=== PATIENT | female | born 1940 | race African-American/Black ===

== ENCOUNTER 2017-11-09 21:25 | Emergency (ER) | payer MEDICARE, OTHER ==
[~2017-11-09] VITALS: Ht 167.6 cm; Wt 72.6 kg
[2017-11-09 22:12] LABS: Basophils # (auto) 0.1 uL; Basophils % (auto) 1.3 % (0.0-2.0); Eosinophils # (auto) 0.3 uL; Eosinophils % (auto) 5.2 % (0.0-7.0); Hematocrit 38.5 % (36.0-46.0); Hemoglobin 12.4 g/dL (12.2-16.2); Lymphocytes # (auto) 2.2 uL; Lymphocytes % (auto) 42.9 % (10.0-50.0); Mean Corpuscular Hemoglobin 27.8 pg (28.0-32.0); Mean Corpuscular Hgb Conc. 32.3 g/dL (32.0-36.0); Monocytes # (auto) 0.4 uL; Monocytes % (auto) 7.4 % (0.0-12.0); Neutrophils # (auto) 2.2 uL; Neutrophils % (auto) 43.2 % (37.0-80.0); Nucleated Red Blood Cells % 0.2 %; Platelet Count (auto) 222 10^3/uL (140-450); Red Blood Cells 4.48 10^6/uL (4.0-5.20); Red Cell Distribution Width 14.6 % (11.8-14.3); White Blood Cell 5.1 10^3/uL (4.4-10.8)
[2017-11-09 22:30] LABS: Alanine Aminotransferase 26 U/L (13-56); Albumin 3.7 g/dL (3.4-5.0); Anion Gap 9 (5-15); Aspartate Aminotransferase 18 U/L (15-37); BUN/Creatinine Ratio 18.9; Blood Urea Nitrogen 25 mg/dL (7-18); Calcium 9.2 mg/dL (8.5-10.1); Carbon Dioxide 25 mmol/L (21-32); Chloride 107 mmol/L (98-107); GFR African American 50 mL/min; GFR Non-African American 41 mL/min; Glucose 95 mg/dL (74-106); Potassium 3.6 mmol/L (3.5-5.1); Sodium 141 mmol/L (136-145)
[2017-11-09 22:35] LABS: Alkaline Phosphatase 65 U/L (45-117); Bilirubin, Total 0.4 mg/dL (0.2-1.0)
[2017-11-09 22:42] LABS: Urine WBC None Seen /hpf (0 - 5)
[2017-11-09 22:52] LABS: Urine Bacteria NONE SEEN /hpf (None Seen); Urine Blood Negative /uL (Negative); Urine Specific Gravity 1.003 (1.001-1.035)
[2017-11-10 00:26] VITALS: BP 137/67
== END 2017-11-10 03:24 | disposition home or self-care (01) ==
LOC: ER 21:25 → EDBD 21:25 → ER 11-10 03:24
DX: I10 Essential (primary) hypertension (principal); E11.9 Type 2 diabetes mellitus without complications; Z45.2 Encounter for adjustment and management of vascular access device; Z90.710 Acquired absence of both cervix and uterus
CPT/HCPCS: 36415; 71045; 80053; 81001; 84484; 85025; 93005; 94761

== ENCOUNTER → 2017-11-09 | Outpatient (CLI) | payer MEDICARE, OTHER ==
[~2017-11-09] MED LIST: LATA0.0020 EACHEYE; LOS50T PO; MET50T PO; SIMV-8 PO; TRIA50TA2 PO
[2017-11-09 08:34] LABS: Basophils # (auto) 0.1 uL; Basophils % (auto) 1.3 % (0.0-2.0); Eosinophils # (auto) 0.2 uL; Eosinophils % (auto) 5.2 % (0.0-7.0); Hematocrit 38.6 % (36.0-46.0); Hemoglobin 12.4 g/dL (12.2-16.2); Lymphocytes # (auto) 1.7 uL; Lymphocytes % (auto) 40.3 % (10.0-50.0); Mean Corpuscular Hemoglobin 27.6 pg (28.0-32.0); Mean Corpuscular Hgb Conc. 32.1 g/dL (32.0-36.0); Mean Corpuscular Volume 86.1 fL (80.0-100.0); Monocytes # (auto) 0.3 uL; Monocytes % (auto) 7.3 % (0.0-12.0); Neutrophils # (auto) 1.9 uL; Neutrophils % (auto) 45.9 % (37.0-80.0); Nucleated Red Blood Cells % 0.1 %; Platelet Count (auto) 234 10^3/uL (140-450); Red Blood Cells 4.49 10^6/uL (4.0-5.20); Red Cell Distribution Width 15.2 % (11.8-14.3); White Blood Cell 4.2 10^3/uL (4.4-10.8)
[2017-11-09 09:21] LABS: Albumin 3.6 g/dL (3.4-5.0); BUN/Creatinine Ratio 18.6; Bilirubin, Total 0.5 mg/dL (0.2-1.0); Calcium 9.5 mg/dL (8.5-10.1); Potassium 3.6 mmol/L (3.5-5.1); Total Protein 7.4 g/dL (6.4-8.2)
== END | disposition home or self-care (01) ==
LOC: LAB 07:33
PROVIDERS: ATTEND Physician Assistant
DX: I70.0 Atherosclerosis of aorta (principal); E78.2 Mixed hyperlipidemia; E11.22 Type 2 diabetes mellitus with diabetic chronic kidney disease; N18.2 Chronic kidney disease, stage 2 (mild)
CPT/HCPCS: 36415; 80053; 80061; 83036; 85025

== ENCOUNTER 2018-03-27 21:28 | Inpatient (IN) | payer MEDICARE, OTHER ==
[~2018-03-27] VITALS: Ht 167.6 cm; Wt 93.8 kg
[2018-03-28] MEDS ORDERED: ACETAMINOPHEN 325 MG TAB PO ONE (03:15)
[2018-03-28] MEDS ORDERED: cloNIDine HCL 0.1 MG TAB PO ONE (03:15)
[2018-03-28 03:44] LABS: Basophils # (auto) 0.1 uL; Basophils % (auto) 1.3 % (0.0-2.0); Eosinophils # (auto) 0.2 uL; Eosinophils % (auto) 4.3 % (0.0-7.0); Hemoglobin 12.5 g/dL (12.2-16.2); Lymphocytes # (auto) 2.3 uL; Lymphocytes % (auto) 44.6 % (10.0-50.0); Mean Corpuscular Hemoglobin 27.6 pg (28.0-32.0); Mean Corpuscular Volume 86.4 fL (80.0-100.0); Monocytes # (auto) 0.4 uL; Monocytes % (auto) 8.6 % (0.0-12.0); Neutrophils # (auto) 2.1 uL; Neutrophils % (auto) 41.2 % (37.0-80.0); Nucleated Red Blood Cells % 0.1 %; Platelet Count (auto) 229 10^3/uL (140-450); Red Blood Cells 4.52 10^6/uL (4.0-5.20); Red Cell Distribution Width 14.5 % (11.8-14.3); White Blood Cell 5.2 10^3/uL (4.4-10.8)
[2018-03-28 04:04] LABS: Alanine Aminotransferase 25 U/L (13-56); Albumin 3.5 g/dL (3.4-5.0); Anion Gap 7 (5-15); Aspartate Aminotransferase 16 U/L (15-37); BUN/Creatinine Ratio 20.9; Blood Urea Nitrogen 23 mg/dL (7-18); Carbon Dioxide 27 mmol/L (21-32); Chloride 108 mmol/L (98-107); GFR African American 62 mL/min; GFR Non-African American 51 mL/min; Glucose 100 mg/dL (74-106); INR 0.93 (0.9-1.15); Magnesium 2.2 mg/dL (1.6-2.6); Potassium 3.7 mmol/L (3.5-5.1); Sodium 142 mmol/L (136-145)
[2018-03-28 04:09] LABS: Alkaline Phosphatase 63 U/L (45-117); Bilirubin, Total 0.4 mg/dL (0.2-1.0); Total Protein 7.6 g/dL (6.4-8.2)
[2018-03-28] MEDS ORDERED: SODIUM CHLORIDE 0.9% 1,000 ML IV SCH (08:49)
[2018-03-28] MEDS ORDERED: MORPHINE SULFATE 4 MG/ML SYR/VIAL IV PRN ×2 (09:00)
[2018-03-28] MEDS ORDERED: NITROGLYCERIN 0.4 MG SL TAB SL PRN (09:00)
[2018-03-28] MEDS ORDERED: ACETAMINOPHEN 500 MG TAB PO PRN (09:00)
[2018-03-28] MEDS ORDERED: DEXTROSE (50%) 50ML SYRG IV PRN (09:00)
[2018-03-28] MEDS ORDERED: HYDROcodone-ACET 5/325MG TAB PO PRN (09:00)
[2018-03-28] MEDS ORDERED: ONDANSETRON HCL 4 MG/2 ML VIAL IV PRN (09:00)
[2018-03-28] MEDS ORDERED: SODIUM CHLORIDE 0.9% 500 ML IV ONE (09:00)
[2018-03-28] MEDS ORDERED: LORazepam 0.5 MG TAB PO PRN (09:00)
[2018-03-28] MEDS ORDERED: TEMAZEPAM 15 MG CAP PO PRN (09:00)
[2018-03-28] MEDS ORDERED: LACTULOSE 20Gm/30ML SOLN PO PRN (09:00)
[2018-03-28] MEDS: ASPirin 81 mg TAB PO SCH (09:54)
[2018-03-28] MEDS: SODIUM CHLORIDE 0.9% 1,000 ML IV SCH (09:54)
[2018-03-28] MEDS: ENOXAPARIN SOD 40 MG/0.4 ML SYRINGE SC SCH (09:54)
[2018-03-28] MEDS: PANTOPRAZOLE 40 MG TAB PO SCH (09:54)
[2018-03-28] MEDS: ACCU-CHEK COMFORT CURVE STRIP VI SCH ×3 (11:28→21:52)
[2018-03-28] MEDS: InsuLIN REG 1unit/0.01ml Soln (100units/ml) SC SCH ×3 (11:29→21:52)
[2018-03-28 17:00] VITALS: BP_SYST 139; BP_SYST 146; BP_DIAS 74; BP_DIAS 75
[2018-03-28 22:00] VITALS: BP 125/65
[2018-03-28] MEDS ORDERED: INFLUENZA QUAD 2018-2019 0.5 ML SYRG IM SCH (22:00)
[2018-03-29] MEDS: SODIUM CHLORIDE 0.9% 1,000 ML IV SCH ×2 (00:01→12:40)
[2018-03-29 05:45] VITALS: BP 133/72
[2018-03-29 05:58] LABS: Cholesterol 166 mg/dL (< 200); HDL Cholesterol 42 mg/dL (40-59); LDL Cholesterol 111 mg/dL (< 100); Triglycerides 103 mg/dL (< 150)
[2018-03-29] MEDS: ACCU-CHEK COMFORT CURVE STRIP VI SCH ×4 (06:34→22:26)
[2018-03-29] MEDS: InsuLIN REG 1unit/0.01ml Soln (100units/ml) SC SCH ×4 (06:34→22:00)
[2018-03-29] MEDS: ASPirin 81 mg TAB PO SCH (08:50)
[2018-03-29] MEDS: PANTOPRAZOLE 40 MG TAB PO SCH (08:50)
[2018-03-29] MEDS: ENOXAPARIN SOD 40 MG/0.4 ML SYRINGE SC SCH (08:50)
[2018-03-29 08:57] VITALS: BP 130/73
[2018-03-29] MEDS: MEPERIDINE HCL (50 MG/ML) 1 ML VIAL IV PRN ×5 (10:25→19:32)
[2018-03-29] MEDS ORDERED: IODIXANOL 320MG/ML 100ML BTL IV ONE (10:53)
[2018-03-29] MEDS ORDERED: LIDOCAINE 2% (LOCAL ANESTH.) PF 5ml SDV ONE ×2 (10:53→12:12)
[2018-03-29] MEDS ORDERED: ceFAZolin 1GM/50ML 50 ML IV ONE (11:30)
[2018-03-29] MEDS ORDERED: SODIUM CHL 0.9% 0 ML ONE (11:44)
[2018-03-29] MEDS ORDERED: fentaNYL CITRATE 100 MCG/2 ML VL ONE (11:44)
[2018-03-29] MEDS ORDERED: MIDAZOLAM HCL 1MG/1ML-2 ML VIAL ONE (11:44)
[2018-03-29] MEDS ORDERED: ANGIOMAX 250 MG VIAL IV ONE (11:44)
[2018-03-29] MEDS ORDERED: VANCOMYCIN HCL 1000 MG VL ONE (12:22)
[2018-03-29] MEDS ORDERED: VANCOMYCIN 1GM/250ML 250 ML IV ONE (12:22)
[2018-03-29] MEDS ORDERED: FUROSEMIDE 20 MG/2 ML VIAL ONE (12:50)
[2018-03-29 13:24] VITALS: BP 144/75
[2018-03-29 17:00] VITALS: BP 159/76
[2018-03-29 21:34] VITALS: BP 130/72
[2018-03-29] MEDS: VANCOMYCIN 1GM/250ML 250 ML IV SCH (22:26)
[2018-03-30 05:17] VITALS: BP 143/86
[2018-03-30] MEDS: SODIUM CHLORIDE 0.9% 1,000 ML IV SCH (06:41)
[2018-03-30] MEDS: InsuLIN REG 1unit/0.01ml Soln (100units/ml) SC SCH ×2 (06:41→11:30)
[2018-03-30] MEDS: ACCU-CHEK COMFORT CURVE STRIP VI SCH ×2 (06:41→11:30)
[2018-03-30 08:00] VITALS: BP 137/77
[2018-03-30 08:33] VITALS: BP 137/77
[2018-03-30] MEDS: ENOXAPARIN SOD 40 MG/0.4 ML SYRINGE SC SCH (10:00)
[2018-03-30] MEDS: ASPirin 81 mg TAB PO SCH (10:00)
[2018-03-30] MEDS: VANCOMYCIN 1GM/250ML 250 ML IV SCH (10:05)
[2018-03-30] MEDS: PANTOPRAZOLE 40 MG TAB PO SCH (10:05)
[2018-03-30 12:20] VITALS: BP 150/80
== END 2018-03-30 17:24 | disposition home health service (06) | DRG 242 ==
LOC: EDUNIT# 21:28 → EDBD 21:28 → ER 21:30 → TELE 21:31 → TELE-EAST 03-28 15:25
PROVIDERS: ADMIT Internal Medicine; ATTEND Family Medicine
PROC: 4A023N7 Measurement of Cardiac Sampling and Pressure, Left Heart, Percutaneous Approach (ICD-10-PCS; principal; 2018-03-29)
PROC: 0JH606Z Insertion of Pacemaker, Dual Chamber into Chest Subcutaneous Tissue and Fascia, Open Approach (ICD-10-PCS; 2018-03-29)
PROC: 02H63JZ Insertion of Pacemaker Lead into Right Atrium, Percutaneous Approach (ICD-10-PCS; 2018-03-29)
PROC: 02HK3JZ Insertion of Pacemaker Lead into Right Ventricle, Percutaneous Approach (ICD-10-PCS; 2018-03-29)
PROC: B2111ZZ Fluoroscopy of Multiple Coronary Arteries using Low Osmolar Contrast (ICD-10-PCS; 2018-03-29)
PROC: B2151ZZ Fluoroscopy of Left Heart using Low Osmolar Contrast (ICD-10-PCS; 2018-03-29)
DX: I49.5 Sick sinus syndrome (principal); I50.33 Acute on chronic diastolic (congestive) heart failure; I95.9 Hypotension, unspecified; F32.9 Major depressive disorder, single episode, unspecified; N28.9 Disorder of kidney and ureter, unspecified; I08.3 Combined rheumatic disorders of mitral, aortic and tricuspid valves; E11.9 Type 2 diabetes mellitus without complications; E78.00 Pure hypercholesterolemia, unspecified; I11.0 Hypertensive heart disease with heart failure; Z79.899 Other long term (current) drug therapy; Z82.0 Family history of epilepsy and other diseases of the nervous system; Z82.49 Family history of ischemic heart disease and other diseases of the circulatory system; Z90.710 Acquired absence of both cervix and uterus; Z79.82 Long term (current) use of aspirin
CPT/HCPCS: 33208; 36415; 70450; 71045; 80053; 80061; 82550; 82962; 83036; 83735; 83880; 84443; 84484; 85025; 85610; 85652; 85730; 86141; 90674; 93005; 93306; 93458; 96360; 96372; 99152; A6257; C1785; J2001; J2250; Q9967

== ENCOUNTER 2018-05-13 02:49 | Emergency (ER) | payer MEDICARE, OTHER ==
[~2018-05-13] VITALS: Ht 167.6 cm; Wt 72.6 kg
[~2018-05-13 02:49] MED LIST changes: +LATA0.0015 EACHEYE; +LOSA-46 PO; +MET25T PO
[2018-05-13 02:55] VITALS: BP 178/82
== END 2018-05-13 05:30 | disposition left against medical advice (07) ==
LOC: ER 02:49 → MERGE 02:49 → EDBD 02:49 → ER 05:30
DX: I10 Essential (primary) hypertension (principal); Z53.21 Procedure and treatment not carried out due to patient leaving prior to being seen by health care provider

== ENCOUNTER → 2018-05-14 | Outpatient (CLI) | payer MEDICARE, OTHER | END | disposition home or self-care (01) | LOC: Rad HDHVI 10:00 → MERGE 10:00 | PROVIDERS: ATTEND Internal Medicine Cardiovascular Disease | DX: I35.1 Nonrheumatic aortic (valve) insufficiency (principal); I10 Essential (primary) hypertension; I49.5 Sick sinus syndrome | CPT/HCPCS: 93306 ==

== ENCOUNTER → 2018-08-24 | Outpatient (CLI) | payer MEDICARE, OTHER ==
[2018-08-24 09:20] LABS: Basophils # (auto) 0 uL; Basophils % (auto) 1.4 % (0.0-2.0); Eosinophils # (auto) 0.1 uL; Eosinophils % (auto) 3.5 % (0.0-7.0); Hematocrit 39.8 % (36.0-46.0); Hemoglobin 12.8 g/dL (12.2-16.2); Lymphocytes # (auto) 1.5 uL; Lymphocytes % (auto) 44.9 % (10.0-50.0); Mean Corpuscular Hemoglobin 27.3 pg (28.0-32.0); Mean Corpuscular Hgb Conc. 32.1 g/dL (32.0-36.0); Mean Corpuscular Volume 84.9 fL (80.0-100.0); Monocytes # (auto) 0.2 uL; Monocytes % (auto) 7.5 % (0.0-12.0); Neutrophils # (auto) 1.4 uL; Neutrophils % (auto) 42.7 % (37.0-80.0); Nucleated Red Blood Cells % 0.3 %; Platelet Count (auto) 242 10^3/uL (140-450); Red Blood Cells 4.69 10^6/uL (4.0-5.20); Red Cell Distribution Width 14.7 % (11.8-14.3); White Blood Cell 3.3 10^3/uL (4.4-10.8)
[2018-08-24 09:30] LABS: Urine Bacteria FEW /hpf (None Seen); Urine Blood Negative /uL (Negative); Urine Specific Gravity 1.009 (1.001-1.035); Urine WBC 2 /hpf (0 - 5)
[2018-08-24 09:50] LABS: Albumin 3.6 g/dL (3.4-5.0); Calcium 9.8 mg/dL (8.5-10.1); Potassium 3.6 mmol/L (3.5-5.1)
[2018-08-24 09:55] LABS: Bilirubin, Total 0.4 mg/dL (0.2-1.0); Total Protein 7.5 g/dL (6.4-8.2)
== END | disposition home or self-care (01) ==
LOC: LAB 08:32
PROVIDERS: ATTEND Physician Assistant
DX: E11.22 Type 2 diabetes mellitus with diabetic chronic kidney disease (principal); I13.0 Hypertensive heart and chronic kidney disease with heart failure and stage 1 through stage 4 chronic kidney disease, or unspecified chronic kidney disease; I50.9 Heart failure, unspecified; N18.3 Chronic kidney disease, stage 3 (moderate); E78.5 Hyperlipidemia, unspecified; Z75.0 Medical services not available in home
CPT/HCPCS: 36415; 80053; 80061; 81001; 83036; 85025

== ENCOUNTER 2018-09-21 09:47 | Emergency (ER) | payer MEDICARE, OTHER ==
[~2018-09-21] VITALS: Ht 167.6 cm; Wt 70.8 kg
[2018-09-21] MEDS ORDERED: cloNIDine HCL 0.1 MG TAB PO ONE ×2 (10:00→11:00)
[2018-09-21 10:17] LABS: Urine WBC None Seen /hpf (0 - 5)
[2018-09-21 10:33] LABS: Basophils # (auto) 0 uL; Eosinophils # (auto) 0.1 uL; Eosinophils % (auto) 3.5 % (0.0-7.0); Hematocrit 40.5 % (36.0-46.0); Hemoglobin 13.2 g/dL (12.2-16.2); Lymphocytes # (auto) 1.5 uL; Lymphocytes % (auto) 35.7 % (10.0-50.0); Mean Corpuscular Hemoglobin 27.9 pg (28.0-32.0); Mean Corpuscular Hgb Conc. 32.7 g/dL (32.0-36.0); Mean Corpuscular Volume 85.3 fL (80.0-100.0); Monocytes # (auto) 0.3 uL; Monocytes % (auto) 8.2 % (0.0-12.0); Neutrophils # (auto) 2.2 uL; Neutrophils % (auto) 51.6 % (37.0-80.0); Platelet Count (auto) 237 10^3/uL (140-450); Red Blood Cells 4.74 10^6/uL (4.0-5.20); Red Cell Distribution Width 15.1 % (11.8-14.3); White Blood Cell 4.2 10^3/uL (4.4-10.8)
[2018-09-21 10:54] LABS: Albumin 3.9 g/dL (3.4-5.0); Anion Gap 4 (5-15); Blood Urea Nitrogen 26 mg/dL (7-18); Calcium 9.7 mg/dL (8.5-10.1); Carbon Dioxide 27 mmol/L (21-32); Chloride 110 mmol/L (98-107); Glucose 90 mg/dL (74-106); Potassium 3.8 mmol/L (3.5-5.1); Sodium 141 mmol/L (136-145)
[2018-09-21 11:01] LABS: Alanine Aminotransferase 26 U/L (13-56); Alkaline Phosphatase 72 U/L (45-117); Aspartate Aminotransferase 14 U/L (15-37); BUN/Creatinine Ratio 24.5; Bilirubin, Total 0.5 mg/dL (0.2-1.0); GFR African American 64 mL/min; GFR Non-African American 53 mL/min; Total Protein 7.8 g/dL (6.4-8.2)
[2018-09-21 11:35] LABS: Urine Bacteria NONE SEEN /hpf (None Seen); Urine Blood Negative /uL (Negative); Urine Specific Gravity 1.004 (1.001-1.035)
[2018-09-21] MEDS ORDERED: HYDROcodone-ACET 10/325MG TAB PO ONE (11:45)
[2018-09-21] MEDS ORDERED: ACETAMINOPHEN 500 MG TAB PO ONE ×2 (11:51→12:00)
[2018-09-21 16:00] VITALS: BP 128/78
== END 2018-09-21 14:41 | disposition home or self-care (01) ==
LOC: ER 09:47
DX: I13.0 Hypertensive heart and chronic kidney disease with heart failure and stage 1 through stage 4 chronic kidney disease, or unspecified chronic kidney disease (principal); E11.22 Type 2 diabetes mellitus with diabetic chronic kidney disease; N18.9 Chronic kidney disease, unspecified; I50.9 Heart failure, unspecified; E78.5 Hyperlipidemia, unspecified; Z90.710 Acquired absence of both cervix and uterus; Z95.0 Presence of cardiac pacemaker; Z79.899 Other long term (current) drug therapy
CPT/HCPCS: 36415; 70450; 80053; 81001; 84484; 85025; 93005

== ENCOUNTER → 2018-09-27 | Outpatient (CLI) | payer MEDICARE, OTHER | END | disposition home or self-care (01) | LOC: Rad HDHVI 09:47 | PROVIDERS: ATTEND Internal Medicine Cardiovascular Disease | DX: I35.1 Nonrheumatic aortic (valve) insufficiency (principal); I11.9 Hypertensive heart disease without heart failure; R00.2 Palpitations | CPT/HCPCS: 93306 ==

== ENCOUNTER 2018-10-23 13:46 | Emergency (ER) | payer MEDICARE, OTHER ==
[~2018-10-23] VITALS: Ht 167.6 cm; Wt 70.8 kg
[2018-10-23 15:15] LABS: Basophils # (auto) 0 uL; Basophils % (auto) 1.4 % (0.0-2.0); Eosinophils # (auto) 0.2 uL; Eosinophils % (auto) 4.4 % (0.0-7.0); Hematocrit 37.9 % (36.0-46.0); Hemoglobin 12.5 g/dL (12.2-16.2); Lymphocytes # (auto) 1.6 uL; Lymphocytes % (auto) 44.7 % (10.0-50.0); Mean Corpuscular Hemoglobin 28.2 pg (28.0-32.0); Mean Corpuscular Hgb Conc. 33.1 g/dL (32.0-36.0); Mean Corpuscular Volume 85.1 fL (80.0-100.0); Monocytes # (auto) 0.3 uL; Monocytes % (auto) 7.5 % (0.0-12.0); Neutrophils # (auto) 1.5 uL; Nucleated Red Blood Cells % 0.3 %; Platelet Count (auto) 220 10^3/uL (140-450); Red Blood Cells 4.46 10^6/uL (4.0-5.20); Red Cell Distribution Width 14.6 % (11.8-14.3); White Blood Cell 3.6 10^3/uL (4.4-10.8)
[2018-10-23 15:31] LABS: Albumin 3.6 g/dL (3.4-5.0); Calcium 9.5 mg/dL (8.5-10.1); Magnesium 2.4 mg/dL (1.6-2.6); Potassium 3.8 mmol/L (3.5-5.1)
[2018-10-23 15:33] LABS: Bilirubin, Total 0.5 mg/dL (0.2-1.0); Total Protein 6.9 g/dL (6.4-8.2)
[2018-10-23 15:35] LABS: BUN/Creatinine Ratio 19.3
[2018-10-23 16:22] VITALS: BP 131/80
== END 2018-10-23 16:24 | disposition home or self-care (01) ==
LOC: ER 13:53
DX: R07.89 Other chest pain (principal); I13.0 Hypertensive heart and chronic kidney disease with heart failure and stage 1 through stage 4 chronic kidney disease, or unspecified chronic kidney disease; E11.22 Type 2 diabetes mellitus with diabetic chronic kidney disease; N18.9 Chronic kidney disease, unspecified; I50.9 Heart failure, unspecified; E78.5 Hyperlipidemia, unspecified; Z95.0 Presence of cardiac pacemaker; Z79.899 Other long term (current) drug therapy
CPT/HCPCS: 36415; 71046; 80053; 83735; 84484; 85025; 93005

== ENCOUNTER → 2019-02-04 | Outpatient (CLI) | payer MEDICARE, OTHER ==
[~2019-02-04] VITALS: Ht 167.6 cm; Wt 69.4 kg
[~2019-02-04] MED LIST changes: -LOSA-46 PO; +LOSA-69 PO
== END | disposition home or self-care (01) ==
LOC: Rad HDHVI 12:43
PROVIDERS: ATTEND Internal Medicine Cardiovascular Disease
DX: I11.0 Hypertensive heart disease with heart failure (principal); I50.33 Acute on chronic diastolic (congestive) heart failure; I49.5 Sick sinus syndrome; E78.00 Pure hypercholesterolemia, unspecified
CPT/HCPCS: 78452; 93017; 96374; A9500

== ENCOUNTER → 2019-02-12 | Outpatient (CLI) | payer MEDICARE, OTHER | END | disposition home or self-care (01) | LOC: Rad HDHVI 09:49 | PROVIDERS: ATTEND Internal Medicine Cardiovascular Disease | DX: I13.0 Hypertensive heart and chronic kidney disease with heart failure and stage 1 through stage 4 chronic kidney disease, or unspecified chronic kidney disease (principal); I50.33 Acute on chronic diastolic (congestive) heart failure; N18.9 Chronic kidney disease, unspecified; R00.2 Palpitations | CPT/HCPCS: 93880 ==

== ENCOUNTER → 2019-09-25 | Outpatient (CLI) | payer MEDICARE, OTHER ==
[~2019-09-25] MED LIST changes: -LATA0.0015 EACHEYE; +LATA0.0019 EACHEYE
[2019-09-25 08:57] LABS: Basophils # (auto) 0 10 ^3/uL (0-0.2); Basophils % (auto) 1.1 % (0.0-2.0); Eosinophils # (auto) 0.2 10 ^3/uL (0-0.8); Eosinophils % (auto) 4.7 % (0.0-7.0); Hematocrit 40.7 % (36.0-46.0); Hemoglobin 13.3 g/dL (12.2-16.2); Lymphocytes # (auto) 1.5 10 ^3/uL (0.4-5.4); Lymphocytes % (auto) 35.4 % (10.0-50.0); Mean Corpuscular Hgb Conc. 32.8 g/dL (32.0-36.0); Mean Corpuscular Volume 85.3 fL (80.0-100.0); Monocytes # (auto) 0.3 10 ^3/uL (0-1.3); Monocytes % (auto) 7.9 % (0.0-12.0); Neutrophils # (auto) 2.1 10 ^3/uL (1.6-8.6); Neutrophils % (auto) 50.9 % (37.0-80.0); Nucleated Red Blood Cells % 0.1 %; Platelet Count (auto) 217 10^3/uL (140-450); Red Blood Cells 4.77 10^6/uL (4.0-5.20); Red Cell Distribution Width 14.7 % (11.8-14.3); White Blood Cell 4.2 10^3/uL (4.4-10.8)
[2019-09-25 09:23] LABS: Albumin 3.7 g/dL (3.4-5.0); Calcium 9.9 mg/dL (8.5-10.1); Potassium 3.4 mmol/L (3.5-5.1)
[2019-09-25 09:28] LABS: BUN/Creatinine Ratio 17.7; Bilirubin, Total 0.5 mg/dL (0.2-1.0); Total Protein 7.7 g/dL (6.4-8.2)
== END | disposition home or self-care (01) ==
LOC: LAB 08:37
PROVIDERS: ATTEND Physician Assistant
DX: I12.9 Hypertensive chronic kidney disease with stage 1 through stage 4 chronic kidney disease, or unspecified chronic kidney disease (principal); R73.9 Hyperglycemia, unspecified; E78.2 Mixed hyperlipidemia; N18.2 Chronic kidney disease, stage 2 (mild); I11.9 Hypertensive heart disease without heart failure
CPT/HCPCS: 36415; 80053; 80061; 85025

== ENCOUNTER → 2020-02-04 | Outpatient (CLI) | payer MEDICARE, OTHER | END | disposition home or self-care (01) | LOC: Rad HDHVI 09:44 | PROVIDERS: ATTEND Internal Medicine Cardiovascular Disease | DX: R07.89 Other chest pain (principal); R42 Dizziness and giddiness; Z95.0 Presence of cardiac pacemaker | CPT/HCPCS: 93306 ==

== ENCOUNTER → 2020-03-03 | Outpatient (CLI) | payer MEDICARE, OTHER ==
[~2020-03-03] VITALS: Ht 167.6 cm; Wt 71.7 kg
[~2020-03-03] MED LIST changes: +ADENOSINE 60 MG in GIVE UN-DILUTED 0 ML IV ONE; +ADENOSINE 90 MG/30 ML INJ IV ONE
== END | disposition home or self-care (01) ==
LOC: Rad HDHVI 02-19 09:05
PROVIDERS: ATTEND Internal Medicine Cardiovascular Disease
DX: E78.00 Pure hypercholesterolemia, unspecified (principal); I10 Essential (primary) hypertension; Z95.0 Presence of cardiac pacemaker
CPT/HCPCS: 78452; 93005; 96374; 96375; A9500; J0153

== ENCOUNTER → 2020-09-16 | Outpatient (CLI) | payer MEDICARE, OTHER ==
[~2020-09-16] MED LIST changes: -ADENOSINE 60 MG in GIVE UN-DILUTED 0 ML IV ONE; -ADENOSINE 90 MG/30 ML INJ IV ONE
[2020-09-16 11:40] LABS: Basophils # (auto) 0 10 ^3/uL (0-0.2); Basophils % (auto) 1.2 % (0.0-2.0); Eosinophils # (auto) 0.2 10 ^3/uL (0-0.8); Eosinophils % (auto) 4.4 % (0.0-7.0); Hematocrit 38.4 % (36.0-46.0); Hemoglobin 12.8 g/dL (12.2-16.2); Lymphocytes # (auto) 1.3 10 ^3/uL (0.4-5.4); Lymphocytes % (auto) 35.4 % (10.0-50.0); Mean Corpuscular Hemoglobin 28.2 pg (28.0-32.0); Mean Corpuscular Hgb Conc. 33.4 g/dL (32.0-36.0); Mean Corpuscular Volume 84.4 fL (80.0-100.0); Monocytes # (auto) 0.4 10 ^3/uL (0-1.3); Monocytes % (auto) 9.4 % (0.0-12.0); Neutrophils # (auto) 1.9 10 ^3/uL (1.6-8.6); Neutrophils % (auto) 49.6 % (37.0-80.0); Nucleated Red Blood Cells % 0.1 %; Platelet Count (auto) 233 10^3/uL (140-450); Red Blood Cells 4.56 10^6/uL (4.0-5.20); Red Cell Distribution Width 14.7 % (11.8-14.3); White Blood Cell 3.8 10^3/uL (4.4-10.8)
[2020-09-16 11:53] LABS: Potassium 3.8 mmol/L (3.5-5.1)
[2020-09-16 11:54] LABS: Urine Blood Negative /uL (Negative); Urine Specific Gravity 1.018 (1.001-1.035)
[2020-09-16 11:55] LABS: Free T4 (Free Thyroxine) 1.09 ng/dL (0.89-1.76)
[2020-09-16 12:14] LABS: Albumin 3.6 g/dL (3.4-5.0); BUN/Creatinine Ratio 19.7; Bilirubin, Total 0.7 mg/dL (0.2-1.0); Calcium 9.5 mg/dL (8.5-10.1); Total Protein 7.3 g/dL (6.4-8.2)
== END | disposition home or self-care (01) ==
LOC: LAB 08:09
PROVIDERS: ATTEND Internal Medicine Cardiovascular Disease
DX: D51.3 Other dietary vitamin B12 deficiency anemia (principal); I10 Essential (primary) hypertension; E11.9 Type 2 diabetes mellitus without complications; E55.9 Vitamin D deficiency, unspecified; D64.9 Anemia, unspecified; R00.2 Palpitations; R53.1 Weakness; R30.0 Dysuria
CPT/HCPCS: 36415; 80053; 80061; 81003; 82306; 82607; 83036; 84439; 84443; 85025; 87086

== ENCOUNTER → 2021-01-28 | Outpatient (CLI) | payer MEDICARE, OTHER | END | disposition home or self-care (01) | LOC: Rad HDHVI 10:48 | PROVIDERS: ATTEND Internal Medicine Cardiovascular Disease | DX: R07.89 Other chest pain (principal); R06.02 Shortness of breath | CPT/HCPCS: 93306 ==

== ENCOUNTER → 2021-08-16 | Outpatient (CLI) | payer MEDICARE, OTHER ==
[2021-08-16 11:54] LABS: Basophils # (auto) 0 10 ^3/uL (0-0.2); Eosinophils # (auto) 0.2 10 ^3/uL (0-0.8); Eosinophils % (auto) 3.8 % (0.0-7.0); Hematocrit 36.4 % (36.0-46.0); Hemoglobin 12.1 g/dL (12.2-16.2); Lymphocytes # (auto) 1.6 10 ^3/uL (0.4-5.4); Lymphocytes % (auto) 40.2 % (10.0-50.0); Mean Corpuscular Hemoglobin 28.3 pg (28.0-32.0); Mean Corpuscular Hgb Conc. 33.2 g/dL (32.0-36.0); Mean Corpuscular Volume 85.4 fL (80.0-100.0); Monocytes # (auto) 0.3 10 ^3/uL (0-1.3); Monocytes % (auto) 8.3 % (0.0-12.0); Neutrophils # (auto) 1.9 10 ^3/uL (1.6-8.6); Neutrophils % (auto) 46.7 % (37.0-80.0); Nucleated Red Blood Cells % 0.2 %; Red Blood Cells 4.26 10^6/uL (4.0-5.20); Red Cell Distribution Width 14.5 % (11.8-14.3)
[2021-08-16 11:59] LABS: Albumin 3.4 g/dL (3.4-5.0); BUN/Creatinine Ratio 18.4; Calcium 9.6 mg/dL (8.5-10.1); Potassium 3.7 mmol/L (3.5-5.1)
[2021-08-16 12:02] LABS: Bilirubin, Total 0.4 mg/dL (0.2-1.0); Total Protein 7.2 g/dL (6.4-8.2)
[2021-08-16 12:14] LABS: Free T4 (Free Thyroxine) 0.93 ng/dL (0.89-1.76)
[2021-08-16 15:51] LABS: Urine Blood Negative /uL (Negative); Urine Specific Gravity 1.025 (1.001-1.035)
== END | disposition home or self-care (01) ==
LOC: LAB 08:16
PROVIDERS: ATTEND Internal Medicine Cardiovascular Disease
DX: E11.9 Type 2 diabetes mellitus without complications (principal); D51.3 Other dietary vitamin B12 deficiency anemia; D64.9 Anemia, unspecified; E55.9 Vitamin D deficiency, unspecified; I10 Essential (primary) hypertension; R00.2 Palpitations; R53.1 Weakness; R30.0 Dysuria
CPT/HCPCS: 36415; 80053; 80061; 81003; 82306; 82607; 83036; 84439; 84443; 85025; 87086

== ENCOUNTER → 2021-10-20 | Outpatient (CLI) | payer MEDICARE, OTHER ==
[2021-10-20 09:11] LABS: Basophils # (auto) 0.1 10 ^3/uL (0-0.2); Basophils % (auto) 1.3 % (0.0-2.0); Eosinophils # (auto) 0.2 10 ^3/uL (0-0.8); Hematocrit 38.2 % (36.0-46.0); Hemoglobin 12.7 g/dL (12.2-16.2); Lymphocytes # (auto) 1.7 10 ^3/uL (0.4-5.4); Mean Corpuscular Hemoglobin 28.3 pg (28.0-32.0); Mean Corpuscular Hgb Conc. 33.3 g/dL (32.0-36.0); Mean Corpuscular Volume 85.1 fL (80.0-100.0); Monocytes # (auto) 0.4 10 ^3/uL (0-1.3); Monocytes % (auto) 8.8 % (0.0-12.0); Neutrophils % (auto) 46.9 % (37.0-80.0); Nucleated Red Blood Cells % 0.1 %; Red Blood Cells 4.49 10^6/uL (4.0-5.20); Red Cell Distribution Width 14.4 % (11.8-14.3); White Blood Cell 4.4 10^3/uL (4.4-10.8)
[2021-10-20 09:42] LABS: Calcium 9.9 mg/dL (8.5-10.1); Potassium 3.6 mmol/L (3.5-5.1)
[2021-10-20 09:48] LABS: Albumin 3.7 g/dL (3.4-5.0); BUN/Creatinine Ratio 19.7; Bilirubin, Total 0.8 mg/dL (0.2-1.0); Total Protein 7.5 g/dL (6.4-8.2)
== END | disposition home or self-care (01) ==
LOC: LAB 08:48
PROVIDERS: ATTEND Nurse Practitioner Family
DX: I10 Essential (primary) hypertension (principal); E11.9 Type 2 diabetes mellitus without complications; E78.5 Hyperlipidemia, unspecified; Z00.00 Encounter for general adult medical examination without abnormal findings
CPT/HCPCS: 36415; 80053; 80061; 82570; 83036; 85025

== ENCOUNTER → 2021-11-08 | Outpatient (CLI) | payer MEDICARE, OTHER ==
[2021-11-08 11:04] LABS: Urine Bacteria NONE SEEN /hpf (None Seen); Urine Blood Negative /uL (Negative); Urine Specific Gravity 1.005 (1.001-1.035); Urine WBC <1 /hpf (0 - 5)
== END | disposition home or self-care (01) ==
LOC: LAB 10:42
PROVIDERS: ATTEND Nurse Practitioner Family
DX: N39.0 Urinary tract infection, site not specified (principal)
CPT/HCPCS: 81001; 87086

== ENCOUNTER → 2021-12-09 | Outpatient (CLI) | payer MEDICARE, OTHER | END | disposition home or self-care (01) | LOC: Rad HDHVI 14:54 | PROVIDERS: ATTEND Internal Medicine Cardiovascular Disease | DX: I35.1 Nonrheumatic aortic (valve) insufficiency (principal); R07.89 Other chest pain; R06.02 Shortness of breath | CPT/HCPCS: 93306 ==

== ENCOUNTER → 2022-01-13 | Outpatient (CLI) | payer MEDICARE, OTHER ==
[~2022-01-13] VITALS: Ht 167.6 cm; Wt 70.3 kg
[~2022-01-13] MED LIST changes: +ADENOSINE 59 MG in GIVE UN-DILUTED 0 ML IV ONE; +ADENOSINE 90 MG/30 ML INJ IV ONE
== END | disposition home or self-care (01) ==
LOC: Rad HDHVI 09:10
PROVIDERS: ATTEND Internal Medicine Cardiovascular Disease
DX: R06.02 Shortness of breath (principal); I10 Essential (primary) hypertension; E78.5 Hyperlipidemia, unspecified; R07.9 Chest pain, unspecified; E11.9 Type 2 diabetes mellitus without complications; Z95.0 Presence of cardiac pacemaker
CPT/HCPCS: 78452; 93005; 96374; 96375; A9500; J0153

== ENCOUNTER 2022-03-04 16:47 | Emergency (ER) | payer MEDICARE, OTHER ==
[~2022-03-04] VITALS: Ht 167.6 cm; Wt 69.5 kg
[~2022-03-04 16:47] MED LIST changes: -ADENOSINE 59 MG in GIVE UN-DILUTED 0 ML IV ONE; -ADENOSINE 90 MG/30 ML INJ IV ONE
[2022-03-04 17:10] VITALS: BP 182/95
== END 2022-03-04 23:29 | disposition home or self-care (01) ==
LOC: ER 16:51
DX: R05.9 Cough, unspecified (principal); I13.0 Hypertensive heart and chronic kidney disease with heart failure and stage 1 through stage 4 chronic kidney disease, or unspecified chronic kidney disease; E11.22 Type 2 diabetes mellitus with diabetic chronic kidney disease; N18.9 Chronic kidney disease, unspecified; I50.9 Heart failure, unspecified; E78.5 Hyperlipidemia, unspecified; Z90.710 Acquired absence of both cervix and uterus; Z95.0 Presence of cardiac pacemaker; Z79.899 Other long term (current) drug therapy
CPT/HCPCS: 71046

== ENCOUNTER → 2022-10-24 | Outpatient (CLI) | payer MEDICARE, OTHER ==
[2022-10-24 10:46] LABS: Basophils # (auto) 0 10 ^3/uL (0-0.2); Eosinophils # (auto) 0.2 10 ^3/uL (0-0.8); Eosinophils % (auto) 4.4 % (0.0-7.0); Hematocrit 39.7 % (36.0-46.0); Hemoglobin 12.8 g/dL (12.2-16.2); Lymphocytes # (auto) 1.8 10 ^3/uL (0.4-5.4); Lymphocytes % (auto) 43.5 % (10.0-50.0); Mean Corpuscular Hemoglobin 27.5 pg (28.0-32.0); Mean Corpuscular Hgb Conc. 32.3 g/dL (32.0-36.0); Monocytes # (auto) 0.4 10 ^3/uL (0-1.3); Monocytes % (auto) 9.9 % (0.0-12.0); Neutrophils # (auto) 1.7 10 ^3/uL (1.6-8.6); Neutrophils % (auto) 41.2 % (37.0-80.0); Nucleated Red Blood Cells % 0.4 %; Red Blood Cells 4.67 10^6/uL (4.0-5.20); Red Cell Distribution Width 14.6 % (11.8-14.3); White Blood Cell 4.2 10^3/uL (4.4-10.8)
[2022-10-24 12:53] LABS: Potassium 3.7 mmol/L (3.5-5.1)
[2022-10-24 13:02] LABS: Albumin 3.7 g/dL (3.4-5.0); BUN/Creatinine Ratio 22.6 (10.0-20.0); Bilirubin, Total 0.5 mg/dL (0.2-1.0); Total Protein 7.2 g/dL (6.4-8.2)
[2022-10-24 15:19] LABS: Micro Albumin 8.45 mg/L (0-30.0)
== END | disposition home or self-care (01) ==
LOC: LAB 10:23
PROVIDERS: ATTEND Nurse Practitioner Family
DX: E11.65 Type 2 diabetes mellitus with hyperglycemia (principal)
CPT/HCPCS: 36415; 80053; 80061; 82043; 82570; 83036; 84439; 84443; 85025

== ENCOUNTER → 2022-12-22 | Outpatient (CLI) | payer MEDICARE, OTHER ==
[~2022-12-22] MED LIST changes: -LATA0.0019 EACHEYE; +LATA0.008 EACHEYE; -LOSA-69 PO; +LOSA50TA46 PO; -SIMV-8 PO; +SIMV20TA20 PO; -TRIA50TA2 PO; +TRIA75TA11 PO
== END | disposition home or self-care (01) ==
LOC: Rad HDHVI 10:00
PROVIDERS: ATTEND Internal Medicine Cardiovascular Disease
DX: I51.7 Cardiomegaly (principal); R00.2 Palpitations; R06.02 Shortness of breath
CPT/HCPCS: 93306

== ENCOUNTER 2023-01-27 10:06 | Inpatient (IN) | payer MEDICARE, OTHER ==
[~2023-01-27] VITALS: Ht 167.6 cm; Wt 75.4 kg
[2023-01-27 10:51] LABS: Basophils # (auto) 0.1 10 ^3/uL (0-0.2); Basophils % (auto) 0.6 % (0.0-2.0); Eosinophils # (auto) 0.1 10 ^3/uL (0-0.8); Eosinophils % (auto) 0.6 % (0.0-7.0); Hematocrit 38.8 % (36.0-46.0); Hemoglobin 12.6 g/dL (12.2-16.2); Lymphocytes # (auto) 1.8 10 ^3/uL (0.4-5.4); Lymphocytes % (auto) 16.2 % (10.0-50.0); Mean Corpuscular Hemoglobin 27.6 pg (28.0-32.0); Mean Corpuscular Hgb Conc. 32.6 g/dL (32.0-36.0); Mean Corpuscular Volume 84.8 fL (80.0-100.0); Monocytes # (auto) 1.3 10 ^3/uL (0-1.3); Monocytes % (auto) 11.7 % (0.0-12.0); Neutrophils # (auto) 7.7 10 ^3/uL (1.6-8.6); Neutrophils % (auto) 70.9 % (37.0-80.0); Nucleated Red Blood Cells % 0.1 %; Red Blood Cells 4.58 10^6/uL (4.0-5.20); Red Cell Distribution Width 14.4 % (11.8-14.3); White Blood Cell 10.8 10^3/uL (4.4-10.8)
[2023-01-27 11:00] VITALS: PULSE 79; RESP 20; O2SAT 93
[2023-01-27 11:09] LABS: Calcium 10.2 mg/dL (8.5-10.1); Magnesium 3.1 mg/dL (1.6-2.6); Potassium 3.8 mmol/L (3.5-5.1)
[2023-01-27 11:19] LABS: Bilirubin, Total 0.7 mg/dL (0.2-1.0); Total Protein 8.2 g/dL (6.4-8.2)
[2023-01-27] MEDS ORDERED: NITROGLYCERIN 0.4 MG SL TAB SL PRN (13:15)
[2023-01-27] MEDS ORDERED: MORPHINE SULFATE INJ 2 MG/ml SYRG IV PRN (13:15)
[2023-01-27] MEDS: SODIUM CHLORIDE 0.9% 1,000 ML IV SCH ×2 (14:06→23:51)
[2023-01-27 19:30] VITALS: PULSE 84; RESP 22; O2SAT 92
[2023-01-27 19:51] LABS: Urine Bacteria NONE SEEN /hpf (None Seen); Urine Blood Negative /uL (Negative); Urine Clarity Clear (Clear); Urine Color Yellow (Yellow); Urine Hyaline Cast FEW /lpf (0 - 2); Urine Protein, UAD TRACE (Negative); Urine Specific Gravity 1.018 (1.001-1.035); Urine Urobilinogen Normal (Negative); Urine WBC 2 /hpf (0 - 5); Urine pH 5.5 (5.0-8.0)
[2023-01-27] MEDS: ATORVASTATIN 20 MG TAB PO SCH (23:47)
[2023-01-28] VITALS (9 sets, daily range): BP systolic 127–162; BP diastolic 66–92; PULSE 84–93; RESP 16–19; TEMP 98.5–100.8; O2SAT 96–97
[2023-01-28] MEDS: LATANOPROST 0.005 % OPTH(EYE) SOL 2.5ML EACHEYE SCH ×2 (00:07→21:10)
[2023-01-28 06:11] LABS: Basophils # (auto) 0.1 10 ^3/uL (0-0.2); Basophils % (auto) 0.6 % (0.0-2.0); Eosinophils # (auto) 0.1 10 ^3/uL (0-0.8); Eosinophils % (auto) 0.7 % (0.0-7.0); Hematocrit 35.6 % (36.0-46.0); Hemoglobin 11.7 g/dL (12.2-16.2); Lymphocytes # (auto) 1.5 10 ^3/uL (0.4-5.4); Lymphocytes % (auto) 15.2 % (10.0-50.0); Mean Corpuscular Hgb Conc. 32.9 g/dL (32.0-36.0); Mean Corpuscular Volume 85.4 fL (80.0-100.0); Monocytes # (auto) 1.2 10 ^3/uL (0-1.3); Monocytes % (auto) 11.4 % (0.0-12.0); Neutrophils # (auto) 7.3 10 ^3/uL (1.6-8.6); Neutrophils % (auto) 72.1 % (37.0-80.0); Red Blood Cells 4.18 10^6/uL (4.0-5.20); Red Cell Distribution Width 14.2 % (11.8-14.3); White Blood Cell 10.1 10^3/uL (4.4-10.8)
[2023-01-28 06:20] LABS: BUN/Creatinine Ratio 15.3 (10.0-20.0); Calcium 9.4 mg/dL (8.5-10.1); Potassium 3.8 mmol/L (3.5-5.1)
[2023-01-28] MEDS: METOPROLOL SUCCINATE XL 50 MG TAB PO SCH (08:59)
[2023-01-28 09:19] LABS: Cholesterol 261 mg/dL (< 200)
[2023-01-28 09:22] LABS: HDL Cholesterol 45 mg/dL (40-59); LDL Cholesterol 195 mg/dL (< 100); Triglycerides 77 mg/dL (< 150)
[2023-01-28] MEDS: SODIUM CHLORIDE 0.9% 1,000 ML IV SCH ×2 (13:43→19:15)
[2023-01-28] MEDS ORDERED: LOSARTAN POTASSIUM 50 MG TAB PO ONE (17:00)
[2023-01-28] MEDS: ATORVASTATIN 20 MG TAB PO SCH (21:10)
[2023-01-29] VITALS (7 sets, daily range): BP systolic 115–157; BP diastolic 47–81; PULSE 71–87; RESP 16–20; TEMP 98.9–100.3; O2SAT 94–98
[2023-01-29] MEDS: SODIUM CHLORIDE 0.9% 1,000 ML IV SCH ×2 (05:38→15:15)
[2023-01-29] MEDS: HCTZ 25 MG TAB PO SCH (09:04)
[2023-01-29] MEDS: LOSARTAN POTASSIUM 50 MG TAB PO SCH (09:04)
[2023-01-29] MEDS: METOPROLOL SUCCINATE XL 50 MG TAB PO SCH (09:05)
[2023-01-29 12:32] LABS: Erythrocyte Sedimentation Rate 86 mm/hr (0-20)
[2023-01-29 14:18] LABS: COVID19 ANTIGEN SOFIA FIA NEGATIVE (NEGATIVE)
[2023-01-29] MEDS: ACETAMINOPHEN 325 MG TAB PO PRN (17:16)
[2023-01-29] MEDS: ATORVASTATIN 20 MG TAB PO SCH (21:10)
[2023-01-29] MEDS: LATANOPROST 0.005 % OPTH(EYE) SOL 2.5ML EACHEYE SCH (21:14)
[2023-01-30] VITALS (7 sets, daily range): BP systolic 133–154; BP diastolic 67–84; PULSE 65–87; RESP 18–20; TEMP 97.8–99.4; O2SAT 94–97
[2023-01-30] MEDS: SODIUM CHLORIDE 0.9% 1,000 ML IV SCH ×2 (01:15→10:18)
[2023-01-30] MEDS: ACETAMINOPHEN 325 MG TAB PO PRN ×2 (04:24→20:20)
[2023-01-30 08:27] LABS: Folate (Folic Acid) 22.28 ng/mL (5.38-24)
[2023-01-30] MEDS ORDERED: ATORVASTATIN 20 MG TAB PO SCH (09:45)
[2023-01-30] MEDS ORDERED: LORazepam 2MG/ML-1ML VIAL IV PRN (09:45)
[2023-01-30] MEDS: LOSARTAN POTASSIUM 50 MG TAB PO SCH (09:48)
[2023-01-30] MEDS: HCTZ 25 MG TAB PO SCH (09:48)
[2023-01-30] MEDS: METOPROLOL SUCCINATE XL 50 MG TAB PO SCH (09:49)
[2023-01-30] MEDS: ASPirin 81 mg TAB PO SCH (10:18)
[2023-01-30] MEDS ORDERED: ATO40T PO (12:38)
[2023-01-30] MEDS ORDERED: CHOL20007 OR (12:38)
[2023-01-30] MEDS ORDERED: NIF10C PO (12:38)
[2023-01-30] MEDS ORDERED: CLON-499 PO (12:41)
[2023-01-30] MEDS ORDERED: TRIATAB3 PO (12:41)
[2023-01-30] MEDS: ATORVASTATIN 20 MG TAB PO SCH (21:57)
[2023-01-30] MEDS: LATANOPROST 0.005 % OPTH(EYE) SOL 2.5ML EACHEYE SCH (21:59)
[2023-01-31] VITALS (7 sets, daily range): BP systolic 124–145; BP diastolic 69–91; PULSE 68–91; RESP 16–18; TEMP 98.1–98.7; O2SAT 94–98
[2023-01-31 06:27] LABS: Potassium 3.7 mmol/L (3.5-5.1)
[2023-01-31 06:41] LABS: Calcium 9.6 mg/dL (8.5-10.1)
[2023-01-31] MEDS: LOSARTAN POTASSIUM 50 MG TAB PO SCH (09:43)
[2023-01-31] MEDS: METOPROLOL SUCCINATE XL 50 MG TAB PO SCH (09:43)
[2023-01-31] MEDS: ASPirin 81 mg TAB PO SCH (09:43)
[2023-01-31] MEDS: HCTZ 25 MG TAB PO SCH (09:46)
[2023-01-31] MEDS: ACETAMINOPHEN 325 MG TAB PO PRN (18:15)
[2023-01-31] MEDS: ATORVASTATIN 20 MG TAB PO SCH (21:57)
[2023-01-31] MEDS: LATANOPROST 0.005 % OPTH(EYE) SOL 2.5ML EACHEYE SCH (22:00)
[2023-02-01 05:00] VITALS: BP 146/80; PULSE 85; RESP 18; TEMP 98.4; O2SAT 94
[2023-02-01 08:10] VITALS: PULSE 85
[2023-02-01] MEDS: ASPirin 81 mg TAB PO SCH (10:17)
[2023-02-01] MEDS: HCTZ 25 MG TAB PO SCH (10:17)
[2023-02-01] MEDS: LOSARTAN POTASSIUM 50 MG TAB PO SCH (10:18)
[2023-02-01] MEDS: METOPROLOL SUCCINATE XL 50 MG TAB PO SCH (10:19)
[2023-02-01 10:21] VITALS: BP 150/83; PULSE 82; RESP 18; TEMP 98.6; O2SAT 96
== END 2023-02-01 12:10 | disposition home health service (06) | DRG 640 ==
LOC: ER 10:06 → TELE 13:12 → TELE-CENTR 21:54
PROVIDERS: ADMIT Internal Medicine; ATTEND Internal Medicine
DX: E86.0 Dehydration (principal); G93.41 Metabolic encephalopathy; N17.0 Acute kidney failure with tubular necrosis; E44.0 Moderate protein-calorie malnutrition; I13.0 Hypertensive heart and chronic kidney disease with heart failure and stage 1 through stage 4 chronic kidney disease, or unspecified chronic kidney disease; R55 Syncope and collapse; Z20.822 Contact with and (suspected) exposure to COVID-19; E83.52 Hypercalcemia; E78.5 Hyperlipidemia, unspecified; N18.30 Chronic kidney disease, stage 3 unspecified; D64.9 Anemia, unspecified; E11.22 Type 2 diabetes mellitus with diabetic chronic kidney disease; E86.9 Volume depletion, unspecified; F41.9 Anxiety disorder, unspecified; F32.A Depression, unspecified; N64.9 Disorder of breast, unspecified; I50.9 Heart failure, unspecified; Z95.0 Presence of cardiac pacemaker; Z90.710 Acquired absence of both cervix and uterus; Z79.82 Long term (current) use of aspirin; Z79.899 Other long term (current) drug therapy; Z86.73 Personal history of transient ischemic attack (TIA), and cerebral infarction without residual deficits; Z68.28 Body mass index [BMI] 28.0-28.9, adult; Z82.0 Family history of epilepsy and other diseases of the nervous system
CPT/HCPCS: 36415; 70450; 71045; 71250; 80048; 80053; 80061; 81001; 82607; 82746; 83036; 83735; 84443; 84484; 85025; 85652; 87426; 93005; 93886; 95819; G0378

== ENCOUNTER → 2023-02-06 | Outpatient (CLI) | payer MEDICARE, OTHER ==
[~2023-02-06] VITALS: Ht 167.6 cm; Wt 73.9 kg
[~2023-02-06] MED LIST changes: +ADENOSINE 62 MG in GIVE UN-DILUTED 0 ML IV ONE; +ADENOSINE 90 MG/30 ML INJ IV ONE; +ATO40T PO; +CHOL20007 OR; +CLON-499 PO; +NIF10C PO; +TRIATAB3 PO
== END | disposition home or self-care (01) ==
LOC: Rad HDHVI 10:08
PROVIDERS: ATTEND Internal Medicine Cardiovascular Disease
DX: R07.9 Chest pain, unspecified (principal); R06.02 Shortness of breath; R00.2 Palpitations; I49.5 Sick sinus syndrome; E11.40 Type 2 diabetes mellitus with diabetic neuropathy, unspecified; E78.00 Pure hypercholesterolemia, unspecified; Z95.0 Presence of cardiac pacemaker
CPT/HCPCS: 71046; 78452; 93005; 96374; 96375; A9500; J0153

== ENCOUNTER → 2023-11-22 | Outpatient (CLI) | payer MEDICARE, OTHER ==
[~2023-11-22] MED LIST changes: -ADENOSINE 62 MG in GIVE UN-DILUTED 0 ML IV ONE; -ADENOSINE 90 MG/30 ML INJ IV ONE; -ATO40T PO; +ATOR-507 PO; +LOSA-534 PO; -LOSA50TA46 PO
== END | disposition home or self-care (01) ==
LOC: Rad HDHVI 10:47
PROVIDERS: ATTEND Internal Medicine Cardiovascular Disease
DX: I73.9 Peripheral vascular disease, unspecified (principal)
CPT/HCPCS: 93925

== ENCOUNTER 2024-01-08 14:56 | Inpatient (IN) | payer MEDICARE, OTHER ==
[~2024-01-08] VITALS: Ht 162.6 cm; Wt 73.9 kg
[2024-01-08 16:26] LABS: Basophils # (auto) 0.1 10 ^3/uL (0-0.2); Basophils % (auto) 1.2 % (0.0-2.0); Eosinophils # (auto) 0.2 10 ^3/uL (0-0.8); Eosinophils % (auto) 4.3 % (0.0-7.0); Hematocrit 38.3 % (36.0-46.0); Hemoglobin 12.6 g/dL (12.2-16.2); Lymphocytes # (auto) 1.6 10 ^3/uL (0.4-5.4); Lymphocytes % (auto) 35.1 % (10.0-50.0); Mean Corpuscular Hemoglobin 28.2 pg (28.0-32.0); Mean Corpuscular Volume 85.4 fL (80.0-100.0); Monocytes # (auto) 0.4 10 ^3/uL (0-1.3); Monocytes % (auto) 7.9 % (0.0-12.0); Neutrophils # (auto) 2.4 10 ^3/uL (1.6-8.6); Neutrophils % (auto) 51.5 % (37.0-80.0); Nucleated Red Blood Cells % 0.1 %; Red Blood Cells 4.49 10^6/uL (4.0-5.20); Red Cell Distribution Width 15.2 % (11.8-14.3); White Blood Cell 4.6 10^3/uL (4.4-10.8)
[2024-01-08 16:42] LABS: Alanine Aminotransferase 32 U/L (7-40); Albumin 4.3 g/dL (3.2-4.8); Alkaline Phosphatase 84 U/L (46-116); Anion Gap 6 (5-15); Aspartate Aminotransferase 20 U/L (13-40); BUN/Creatinine Ratio 8.4 (10.0-20.0); Bilirubin, Total 0.8 mg/dL (0.2-1.0); Blood Urea Nitrogen 10 mg/dL (9-23); Calcium 9.9 mg/dL (8.7-10.4); Carbon Dioxide 27 mmol/L (20-30); Chloride 109 mmol/L (98-107); Glucose 111 mg/dL (74-106); Lipase 34 U/L (12-53); Potassium 3.2 mmol/L (3.5-5.1); Sodium 142 mmol/L (136-145); Total Protein 6.9 g/dL (5.7-8.2)
[2024-01-08 18:16] VITALS: PULSE 72; O2SAT 97
[2024-01-08] MEDS: POTASSIUM EFFERVESENT TAB 25 MEQ PO ONE (18:18)
[2024-01-08 19:14] LABS: Urine Bacteria None Seen /hpf (None Seen)
[2024-01-08 19:34] LABS: Urine Blood Negative /uL (Negative); Urine Clarity Clear (Clear); Urine Color Colorless (Yellow); Urine Protein, UAD Negative (Negative); Urine Specific Gravity 1.002 (1.001-1.035); Urine Urobilinogen Normal (Negative); Urine WBC <1 /hpf (0 - 5)
[2024-01-08] MEDS ORDERED: ONDANSETRON HCL 4 MG/2 ML VIAL IV PRN (20:45)
[2024-01-08] MEDS ORDERED: DOCUSATE SOD 100 MG CAP PO PRN (20:45)
[2024-01-08] MEDS ORDERED: ACETAMINOPHEN 325 MG TAB PO PRN (20:45)
[2024-01-08] MEDS ORDERED: MORPHINE SULFATE INJ 2 MG/ml SYRG IV PRN ×2 (20:45→21:30)
[2024-01-08] MEDS ORDERED: NITROGLYCERIN 0.4 MG SL TAB SL PRN (21:30)
[2024-01-08] MEDS: SODIUM CHLOR 0.9% PF (SALINE LOCK) 10ML VIAL/SYR IV SCH (22:00)
[2024-01-08] MEDS: ATORVASTATIN 20 MG TAB PO SCH (23:16)
[2024-01-08] MEDS: METOPROLOL TARTRATE 25 MG TAB PO SCH (23:16)
[2024-01-08 23:17] VITALS: PULSE 70; RESP 18; O2SAT 96
[2024-01-09] VITALS (8 sets, daily range): BP systolic 114–143; BP diastolic 72–86; PULSE 56–76; RESP 18–22; TEMP 97.6–98.4; O2SAT 96–99
[2024-01-09] MEDS: HYDROcodone-ACET 5/325MG TAB PO PRN (06:45)
[2024-01-09 06:58] LABS: Basophils # (auto) 0 10 ^3/uL (0-0.2); Eosinophils # (auto) 0.2 10 ^3/uL (0-0.8); Eosinophils % (auto) 4.7 % (0.0-7.0); Hematocrit 37.3 % (36.0-46.0); Hemoglobin 12.5 g/dL (12.2-16.2); Lymphocytes # (auto) 1.6 10 ^3/uL (0.4-5.4); Lymphocytes % (auto) 34.9 % (10.0-50.0); Mean Corpuscular Hemoglobin 28.8 pg (28.0-32.0); Mean Corpuscular Hgb Conc. 33.6 g/dL (32.0-36.0); Mean Corpuscular Volume 85.7 fL (80.0-100.0); Monocytes # (auto) 0.4 10 ^3/uL (0-1.3); Monocytes % (auto) 7.9 % (0.0-12.0); Neutrophils # (auto) 2.4 10 ^3/uL (1.6-8.6); Neutrophils % (auto) 51.5 % (37.0-80.0); Nucleated Red Blood Cells % 0.2 %; Red Blood Cells 4.35 10^6/uL (4.0-5.20); Red Cell Distribution Width 15.1 % (11.8-14.3); White Blood Cell 4.6 10^3/uL (4.4-10.8)
[2024-01-09 07:09] LABS: Alanine Aminotransferase 29 U/L (7-40); Albumin 4.1 g/dL (3.2-4.8); Alkaline Phosphatase 78 U/L (46-116); Anion Gap 6 (5-15); Aspartate Aminotransferase 19 U/L (13-40); BUN/Creatinine Ratio 11.3 (10.0-20.0); Blood Urea Nitrogen 11 mg/dL (9-23); Calcium 10.2 mg/dL (8.7-10.4); Carbon Dioxide 27 mmol/L (20-30); Chloride 112 mmol/L (98-107); Glucose 84 mg/dL (74-106); Potassium 3.7 mmol/L (3.5-5.1); Sodium 145 mmol/L (136-145)
[2024-01-09 07:10] LABS: Bilirubin, Total 0.7 mg/dL (0.2-1.0); Total Protein 6.7 g/dL (5.7-8.2)
[2024-01-09] MEDS: ASPirin 81 mg TAB PO SCH (09:55)
[2024-01-10] VITALS (7 sets, daily range): BP systolic 122–163; BP diastolic 69–93; PULSE 63–73; RESP 17–19; TEMP 98.1–98.9; O2SAT 94–100
[2024-01-10 06:58] LABS: Basophils # (auto) 0 10 ^3/uL (0-0.2); Eosinophils # (auto) 0.2 10 ^3/uL (0-0.8); Hematocrit 37.2 % (36.0-46.0); Hemoglobin 12.6 g/dL (12.2-16.2); Lymphocytes # (auto) 1.5 10 ^3/uL (0.4-5.4); Lymphocytes % (auto) 34.2 % (10.0-50.0); Mean Corpuscular Hemoglobin 28.5 pg (28.0-32.0); Mean Corpuscular Hgb Conc. 33.8 g/dL (32.0-36.0); Mean Corpuscular Volume 84.4 fL (80.0-100.0); Monocytes # (auto) 0.4 10 ^3/uL (0-1.3); Monocytes % (auto) 9.9 % (0.0-12.0); Neutrophils # (auto) 2.2 10 ^3/uL (1.6-8.6); Neutrophils % (auto) 49.9 % (37.0-80.0); Nucleated Red Blood Cells % 0.1 %; Red Blood Cells 4.41 10^6/uL (4.0-5.20); Red Cell Distribution Width 15.2 % (11.8-14.3); White Blood Cell 4.4 10^3/uL (4.4-10.8)
[2024-01-10 07:23] LABS: Anion Gap 7 (5-15); Calcium 9.9 mg/dL (8.7-10.4); Carbon Dioxide 27 mmol/L (20-30); Chloride 109 mmol/L (98-107); Potassium 3.8 mmol/L (3.5-5.1); Sodium 143 mmol/L (136-145)
[2024-01-10 07:28] LABS: Glucose 80 mg/dL (74-106)
[2024-01-10 07:29] LABS: BUN/Creatinine Ratio 14.2 (10.0-20.0); Blood Urea Nitrogen 15 mg/dL (9-23)
[2024-01-10] MEDS ORDERED: MEMA1TAB5 PO (11:27)
[2024-01-10] MEDS ORDERED: CILO100T3 PO (11:27)
[2024-01-10] MEDS ORDERED: NIFE1TAB31 PO (11:27)
[2024-01-10] MEDS ORDERED: BUSP5TAB51 PO (11:27)
[2024-01-10] MEDS: LOSARTAN POTASSIUM 50 MG TAB PO ONE (13:30)
[2024-01-10] MEDS: NIFEdipine ER 30 MG TAB PO ONE (13:30)
[2024-01-10] MEDS: MEMANTINE HCL 5 MG TAB PO SCH (21:49)
[2024-01-11 01:08] VITALS: BP 146/81; PULSE 73; RESP 18; TEMP 98.3; O2SAT 99
[2024-01-11 05:00] VITALS: BP 138/82; PULSE 67; RESP 17; TEMP 98.1; O2SAT 98
[2024-01-11 08:00] VITALS: BP 149/96; PULSE 70; RESP 18; TEMP 98.7; O2SAT 94
[2024-01-11] MEDS: LOSARTAN POTASSIUM 50 MG TAB PO SCH (09:58)
[2024-01-11] MEDS: NIFEdipine ER 30 MG TAB PO SCH (09:59)
[2024-01-11 12:00] VITALS: BP 151/93; PULSE 66; RESP 20; TEMP 98.5; O2SAT 96
[2024-01-11 16:00] VITALS: BP 126/72; PULSE 65; RESP 18; TEMP 98.9; O2SAT 97
== END 2024-01-11 18:00 | disposition home health service (06) | DRG 640 ==
LOC: EDBD 14:56 → ER 14:56 → TELE 21:19 → TELE-WESTW 23:51
PROVIDERS: ADMIT Nurse Practitioner Family; ATTEND Internal Medicine
DX: E87.6 Hypokalemia (principal); G93.41 Metabolic encephalopathy; I13.0 Hypertensive heart and chronic kidney disease with heart failure and stage 1 through stage 4 chronic kidney disease, or unspecified chronic kidney disease; I16.0 Hypertensive urgency; E66.9 Obesity, unspecified; E78.5 Hyperlipidemia, unspecified; E11.22 Type 2 diabetes mellitus with diabetic chronic kidney disease; N18.9 Chronic kidney disease, unspecified; I50.9 Heart failure, unspecified; F41.9 Anxiety disorder, unspecified; F32.A Depression, unspecified; F03.90 Unspecified dementia, unspecified severity, without behavioral disturbance, psychotic disturbance, mood disturbance, and anxiety; Z90.710 Acquired absence of both cervix and uterus; Z95.810 Presence of automatic (implantable) cardiac defibrillator; Z68.30 Body mass index [BMI] 30.0-30.9, adult
CPT/HCPCS: 36415; 70450; 71045; 80048; 80053; 81001; 82607; 83605; 83690; 83880; 84443; 84484; 85025; 93306; 97110; 97116; G0378

== ENCOUNTER → 2024-04-03 | Outpatient (CLI) | payer MEDICARE, OTHER ==
[~2024-04-03] VITALS: Ht 167.6 cm; Wt 68.9 kg
[~2024-04-03] MED LIST changes: +ADENOSINE 58 MG in GIVE UN-DILUTED 0 ML IV ONE; +ADENOSINE 90 MG/30 ML INJ IV ONE; +BUSP5TAB51 PO; +CILO100T3 PO; -LATA0.008 EACHEYE; +MEMA1TAB5 PO; -MET25T PO; -NIF10C PO; +NIFE1TAB31 PO; -TRIA75TA11 PO
== END | disposition home or self-care (01) ==
LOC: Rad HDHVI 13:43
PROVIDERS: ATTEND Internal Medicine Cardiovascular Disease
DX: E78.00 Pure hypercholesterolemia, unspecified (principal); I35.1 Nonrheumatic aortic (valve) insufficiency; I10 Essential (primary) hypertension; E11.9 Type 2 diabetes mellitus without complications; I49.5 Sick sinus syndrome
CPT/HCPCS: 78452; 93005; 96374; A9500; J0153; 96375

== ENCOUNTER → 2024-04-10 | Outpatient (CLI) | payer MEDICARE, OTHER ==
[~2024-04-10] MED LIST changes: -ADENOSINE 58 MG in GIVE UN-DILUTED 0 ML IV ONE; -ADENOSINE 90 MG/30 ML INJ IV ONE
[2024-04-10 08:51] LABS: Basophils # (auto) 0 10 ^3/uL (0-0.2); Basophils % (auto) 0.8 % (0.0-2.0); Eosinophils # (auto) 0.2 10 ^3/uL (0-0.8); Eosinophils % (auto) 4.8 % (0.0-7.0); Hematocrit 39.6 % (36.0-46.0); Hemoglobin 13.3 g/dL (12.2-16.2); Lymphocytes # (auto) 1.7 10 ^3/uL (0.4-5.4); Lymphocytes % (auto) 42.7 % (10.0-50.0); Mean Corpuscular Hemoglobin 28.5 pg (28.0-32.0); Mean Corpuscular Hgb Conc. 33.5 g/dL (32.0-36.0); Mean Corpuscular Volume 85.1 fL (80.0-100.0); Monocytes # (auto) 0.4 10 ^3/uL (0-1.3); Neutrophils # (auto) 1.7 10 ^3/uL (1.6-8.6); Neutrophils % (auto) 41.7 % (37.0-80.0); Platelet Count (auto) 237 10^3/uL (140-450); Red Blood Cells 4.65 10^6/uL (4.0-5.20); Red Cell Distribution Width 15.5 % (11.8-14.3)
[2024-04-10 09:50] LABS: Creatinine, Urine 126.77 mg/dL (30.0-125.0)
[2024-04-10 09:53] LABS: Alanine Aminotransferase 21 U/L (7-40); Albumin 4.2 g/dL (3.2-4.8); Alkaline Phosphatase 71 U/L (46-116); Anion Gap 7 (5-15); Aspartate Aminotransferase 15 U/L (13-40); BUN/Creatinine Ratio 10.7 (10.0-20.0); Blood Urea Nitrogen 12 mg/dL (9-23); Calcium 10.4 mg/dL (8.7-10.4); Carbon Dioxide 27 mmol/L (20-31); Chloride 109 mmol/L (98-107); Cholesterol 166 mg/dL (< 200); Glucose 117 mg/dL (74-106); HDL Cholesterol 50 mg/dL (40-59); LDL Cholesterol 97 mg/dL (< 100); Potassium 3.6 mmol/L (3.5-5.1); Sodium 143 mmol/L (136-145); Triglycerides 110 mg/dL (< 150)
[2024-04-10 09:54] LABS: Bilirubin, Total 0.8 mg/dL (0.2-1.0); Total Protein 7.1 g/dL (5.7-8.2)
== END | disposition home or self-care (01) ==
LOC: LAB 08:32
PROVIDERS: ATTEND Nurse Practitioner Family
DX: I13.0 Hypertensive heart and chronic kidney disease with heart failure and stage 1 through stage 4 chronic kidney disease, or unspecified chronic kidney disease (principal); N18.9 Chronic kidney disease, unspecified; I50.9 Heart failure, unspecified; E11.22 Type 2 diabetes mellitus with diabetic chronic kidney disease; E11.42 Type 2 diabetes mellitus with diabetic polyneuropathy
CPT/HCPCS: 36415; 80053; 80061; 82043; 82570; 83036; 84443; 85025

== ENCOUNTER → 2024-10-22 | Outpatient (CLI) | payer MEDICARE, OTHER ==
--- NOTE | 2024-10-22 12:32 | DVH ---
XY CHEST TWO VIEWS ROUTINE, HISTORY: SOB COMPARISON: XY CHEST TWO VIEWS ROUTINE on DOS: 02/06/23, CXR2 on DOS: 03/04/22, CHEST TWO VIEWS ROUTINE on DOS: 03/04/22 XY CHEST TWO VIEWS ROUTINE on DOS: 02/06/23, CXR2 on DOS: 03/04/22, CHEST TWO VIEWS ROUTINE on DOS: 02/17 12/08 TECHNICAL DATA: 1 view of the chest was obtained. FINDINGS: Lines and tubes: A cardiac pacer is seen. Cardiomediastinal silhouette: normal Pulmonary vasculature: normal Lung expansion: normal Lung airspace: normal Lung interstitium: normal Pleura: normal Pneumothorax: no Bones: Unremarkable Other: no IMPRESSION: No acute intrathoracic abnormality.
--- NOTE | 2024-10-22 13:07 | DVH ---
PARANASAL SINUSES: INDICATION: SINUSITIS TECHNIQUE: 4 views FINDINGS: The paranasal sinuses are well-aerated. No abnormal soft tissue densities or air-fluid levels are present. Osseous alignment is anatomic. No displaced fractures are demonstrated. IMPRESSION: Normal sinus series
== END | disposition home or self-care (01) ==
LOC: Rad HDHVI 10:14
PROVIDERS: ATTEND Internal Medicine Cardiovascular Disease
DX: J32.9 Chronic sinusitis, unspecified (principal); R06.02 Shortness of breath
CPT/HCPCS: 70220; 71046

== ENCOUNTER → 2024-11-13 | Outpatient (CLI) | payer MEDICARE, OTHER ==
[2024-11-13 09:24] LABS: Basophils # (auto) 0 10 ^3/uL (0-0.2); Basophils % (auto) 0.9 % (0.0-2.0); Eosinophils # (auto) 0.2 10 ^3/uL (0-0.8); Eosinophils % (auto) 3.9 % (0.0-7.0); Hematocrit 42.4 % (36.0-46.0); Hemoglobin 13.7 g/dL (12.2-16.2); Lymphocytes # (auto) 1.4 10 ^3/uL (0.4-5.4); Lymphocytes % (auto) 31.1 % (10.0-50.0); Mean Corpuscular Hemoglobin 27.6 pg (28.0-32.0); Mean Corpuscular Hgb Conc. 32.4 g/dL (32.0-36.0); Mean Corpuscular Volume 85.1 fL (80.0-100.0); Monocytes # (auto) 0.4 10 ^3/uL (0-1.3); Monocytes % (auto) 8.6 % (0.0-12.0); Neutrophils # (auto) 2.5 10 ^3/uL (1.6-8.6); Neutrophils % (auto) 55.5 % (37.0-80.0); Nucleated Red Blood Cells % 0.1 %; Platelet Count (auto) 218 10^3/uL (140-450); Red Blood Cells 4.99 10^6/uL (4.0-5.20); Red Cell Distribution Width 15.6 % (11.8-14.3); White Blood Cell 4.5 10^3/uL (4.4-10.8)
[2024-11-13 09:29] LABS: Urine Blood Negative /uL (Negative); Urine Clarity Clear (Clear); Urine Color Light-Yellow (Yellow); Urine Protein, UAD Negative (Negative); Urine Specific Gravity 1.009 (1.001-1.035); Urine Urobilinogen Normal (Negative); Urine pH 5.5 (5.0-9.0)
[2024-11-13 10:08] LABS: Alkaline Phosphatase 68 U/L (46-116); Triglycerides 102 mg/dL (< 150)
[2024-11-13 10:09] LABS: Alanine Aminotransferase 28 U/L (7-40); Albumin 4.5 g/dL (3.2-4.8); Anion Gap 8 (5-15); Aspartate Aminotransferase 19 U/L (13-40); BUN/Creatinine Ratio 12.6 (10.0-20.0); Bilirubin, Direct 0.3 mg/dL (<0.3); Bilirubin, Total 1.1 mg/dL (0.2-1.0); Blood Urea Nitrogen 15 mg/dL (9-23); Calcium 10.7 mg/dL (8.7-10.4); Carbon Dioxide 27 mmol/L (20-31); Chloride 109 mmol/L (98-107); Cholesterol 176 mg/dL (< 200); Glucose 106 mg/dL (74-106); HDL Cholesterol 47 mg/dL (40-59); LDL Cholesterol 108 mg/dL (< 100); Potassium 3.5 mmol/L (3.5-5.1); Sodium 144 mmol/L (136-145); Total Protein 7.1 g/dL (5.7-8.2)
== END | disposition home or self-care (01) ==
LOC: LAB 09:04
PROVIDERS: ATTEND Internal Medicine Cardiovascular Disease
DX: I11.0 Hypertensive heart disease with heart failure (principal); I50.9 Heart failure, unspecified; E11.9 Type 2 diabetes mellitus without complications; E55.9 Vitamin D deficiency, unspecified; D64.9 Anemia, unspecified; R00.2 Palpitations
CPT/HCPCS: 36415; 80048; 80061; 80076; 81003; 83036; 84443; 85025

== ENCOUNTER 2024-12-06 13:12 | Emergency (ER) | payer MEDICARE, OTHER | END 2024-12-06 13:31 | disposition left against medical advice (07) | LOC: ER 13:12 | DX: I10 Essential (primary) hypertension (principal); Z53.21 Procedure and treatment not carried out due to patient leaving prior to being seen by health care provider ==

== ENCOUNTER 2025-01-21 09:12 | Outpatient (CLI) | payer MEDICARE, OTHER ==
[2025-01-21 10:26] LABS: Alanine Aminotransferase 28 U/L (7-40); Albumin 4.5 g/dL (3.2-4.8); Alkaline Phosphatase 68 U/L (46-116); Anion Gap 9 (5-15); BUN/Creatinine Ratio 12.4 (10.0-20.0); Bilirubin, Total 0.6 mg/dL (0.2-1.0); Blood Urea Nitrogen 14 mg/dL (9-23); Calcium 9.9 mg/dL (8.7-10.4); Carbon Dioxide 27 mmol/L (20-31); Cholesterol 160 mg/dL (< 200); HDL Cholesterol 47 mg/dL (40-59); Potassium 3.7 mmol/L (3.5-5.1); Sodium 143 mmol/L (136-145); Total Protein 6.8 g/dL (5.7-8.2); Triglycerides 81 mg/dL (< 150)
[2025-01-21 10:27] LABS: Chloride 107 mmol/L (98-107); Glucose 115 mg/dL (74-106)
[2025-01-21 10:47] LABS: Microalb/Creat Ratio, Urine 8.00
[2025-01-21 11:14] LABS: Hematocrit 40.4 % (36.0-46.0); Hemoglobin 13.6 g/dL (12.2-16.2); Mean Corpuscular Hemoglobin 28.6 pg (28.0-32.0); Mean Corpuscular Volume 85.3 fL (80.0-100.0); Nucleated Red Blood Cells % 0.2 %
== END 2025-01-21 17:00 | disposition home or self-care (01) ==
LOC: LAB 09:12
PROVIDERS: ATTEND Nurse Practitioner Family
DX: I11.0 Hypertensive heart disease with heart failure (principal); I50.9 Heart failure, unspecified; E11.9 Type 2 diabetes mellitus without complications; Z00.00 Encounter for general adult medical examination without abnormal findings
CPT/HCPCS: 36415; 80053; 80061; 82043; 82570; 83036; 84443; 85025

== ENCOUNTER 2025-01-28 10:07 | Outpatient (CLI) | payer MEDICARE, OTHER ==
--- NOTE | 2025-01-28 11:17 | DVH ---
EXAM: XY CHEST TWO VIEWS ROUTINE CLINICAL HISTORY: COUGH SOB COMPARISON: XY CHEST TWO VIEWS ROUTINE on DOS: 10/22/24, XY CHEST PORTABLE on DOS: 01/09/24, XY CHEST TW O VIEWS ROUTINE on DOS: 02/06/23, CT CHEST WITHOUT CONTRAST on DOS: 01/28/23, XY CHEST PORTABLE on DOS: 01/28/23 TECHNIQUE: Frontal and lateral view of the chest was obtained FINDINGS: Lines and Tubes: Cardiac pacemaker projects over left chest wall. Lungs: No focal consolidation. Pleura: No effusion. No pneumothorax. Cardiomediastinal contours: Unremarkable. Atherosclerotic vascular calcifications of the thoracic ao rta are noted. Bones: No acute osseous abnormality. IMPRESSION: No acute cardiopulmonary disease.
== END 2025-01-28 17:00 | disposition home or self-care (01) ==
LOC: Rad HDHVI 10:07
PROVIDERS: ATTEND Internal Medicine Cardiovascular Disease
DX: R06.02 Shortness of breath (principal); R05.9 Cough, unspecified; I70.0 Atherosclerosis of aorta
CPT/HCPCS: 71046

== ENCOUNTER 2025-02-03 07:57 | Outpatient (CLI) | payer MEDICARE, OTHER ==
[2025-02-03] MEDS ORDERED: BUMETANIDE ONE (15:09)
[2025-02-03] MEDS ORDERED: POTASSIUM CHL 10 Meq TABLET PO ONE (15:09)
== END 2025-02-03 17:00 | disposition home or self-care (01) ==
LOC: Rad HDHVI 07:57
PROVIDERS: ATTEND Internal Medicine Cardiovascular Disease
DX: I08.8 Other rheumatic multiple valve diseases (principal); I10 Essential (primary) hypertension; R06.02 Shortness of breath
CPT/HCPCS: 93306

== ENCOUNTER 2025-03-10 08:32 | Outpatient (CLI) | payer MEDICARE, OTHER ==
[~2025-03-10] VITALS: Ht 167.6 cm; Wt 68.0 kg
[2025-03-10] MEDS ORDERED: ADENOSINE 57 MG in GIVE UN-DILUTED 0 ML IV ONE (08:45)
[2025-03-10] MEDS ORDERED: ADENOSINE 90 MG/30 ML INJ IV ONE (08:47)
== END 2025-03-10 17:00 | disposition home or self-care (01) ==
LOC: Rad HDHVI 08:32
PROVIDERS: ATTEND Internal Medicine Cardiovascular Disease
DX: I49.1 Atrial premature depolarization (principal); Z13.6 Encounter for screening for cardiovascular disorders; I13.0 Hypertensive heart and chronic kidney disease with heart failure and stage 1 through stage 4 chronic kidney disease, or unspecified chronic kidney disease; E11.22 Type 2 diabetes mellitus with diabetic chronic kidney disease; N18.2 Chronic kidney disease, stage 2 (mild); I50.9 Heart failure, unspecified; E11.40 Type 2 diabetes mellitus with diabetic neuropathy, unspecified; I49.5 Sick sinus syndrome; E78.00 Pure hypercholesterolemia, unspecified; I35.1 Nonrheumatic aortic (valve) insufficiency; R00.2 Palpitations; R06.02 Shortness of breath; Z95.0 Presence of cardiac pacemaker
CPT/HCPCS: 78452; 93017; A9500; J0153

== ENCOUNTER 2025-05-09 08:47 | Outpatient (CLI) | payer MEDICARE, OTHER ==
[2025-05-09 09:14] LABS: Hematocrit 38.9 % (36.0-46.0); Hemoglobin 12.7 g/dL (12.2-16.2); Mean Corpuscular Hemoglobin 27.7 pg (28.0-32.0); Mean Corpuscular Volume 84.6 fL (80.0-100.0); Nucleated Red Blood Cells % 0.1 %
[2025-05-09 09:38] LABS: Urine Protein, UAD Negative (Negative)
[2025-05-09 09:41] LABS: Alanine Aminotransferase 23 U/L (7-40); Albumin 4.0 g/dL (3.2-4.8); Alkaline Phosphatase 70 U/L (46-116); Anion Gap 10 (5-15); BUN/Creatinine Ratio 13.3 (10.0-20.0); Bilirubin, Direct 0.2 mg/dL (<0.3); Blood Urea Nitrogen 17 mg/dL (9-23); Calcium 9.9 mg/dL (8.7-10.4); Carbon Dioxide 27 mmol/L (20-31); Cholesterol 172 mg/dL (< 200); Glucose 106 mg/dL (74-106); HDL Cholesterol 49 mg/dL (40-59); Potassium 3.6 mmol/L (3.5-5.1); Total Protein 6.8 g/dL (5.7-8.2); Triglycerides 78 mg/dL (< 150)
[2025-05-09 09:42] LABS: Bilirubin, Total 0.8 mg/dL (0.2-1.0)
[2025-05-09 09:44] LABS: Chloride 108 mmol/L (98-107); Sodium 145 mmol/L (136-145)
== END 2025-05-09 17:00 | disposition home or self-care (01) ==
LOC: LAB 08:47
PROVIDERS: ATTEND Internal Medicine Cardiovascular Disease
DX: I11.0 Hypertensive heart disease with heart failure (principal); I50.9 Heart failure, unspecified; E11.9 Type 2 diabetes mellitus without complications; E55.9 Vitamin D deficiency, unspecified; N39.0 Urinary tract infection, site not specified; D64.9 Anemia, unspecified; R00.2 Palpitations; G30.0 Alzheimer's disease with early onset
CPT/HCPCS: 36415; 80048; 80061; 80076; 81003; 83036; 84443; 85025